=== PATIENT | male | born 1955 | race Caucasian/White ===

== ENCOUNTER 2017-07-23 10:38 | Observation (INO) ==
[2017-07-23 11:06] LABS: Basophils # 0.1 K/mm3 (0-0.2); Basophils % 0.4 % (0.1-2.0); Eosinophils # 0.1 K/mm3 (0.0-0.4); Eosinophils % 0.7 % (0.1-12.0); Hematocrit 39.3 % (42.0-52.0); Hemoglobin 12.6 g/dL (14.1-18.0); Lymphocytes # 1.3 K/mm3 (0.7-4.5); Lymphocytes % 8.8 K/mm3 (10-50); Mean Corpuscular HGB Conc 32.2 g/dL (31.8-35.4); Mean Corpuscular Hemoglobin 28.9 pg (27.0-31.2); Mean Corpuscular Volume 89.8 fl (80-94); Mean Platelet Volume 7.5 fl (7.4-10.4); Monocytes # 1.1 K/mm3 (0.1-1.0); Monocytes % 7.1 % (1.7-9.3); Neutrophils # 12.7 K/mm3 (1.8-7.8); Platelet Count 454 K/mm3 (142-424); Red Blood Count 4.37 M/mm3 (4.60-6.20); Red Cell Distribution Width 13.2 % (11.5-17.5); White Blood Count 15.3 K/mm3 (4.8-10.8)
[2017-07-23 11:13] LABS: Microscopic, Urine URINE MICROSCOPIC (MICROSCOPIC)
[2017-07-23 11:15] LABS: Appearance,Urine CLEAR (Clear); Bilirubin,Urine Negative (Negative); Blood, Urine 1+ (Negative); Color,Urine YELLOW (Yellow); Glucose,Urine (UA) 3+ (Negative); Ketones,Urine Negative (Negative); Leukocyte Esterase,Urine Negative (Negative); Protein,Urine TRACE (Negative); Specific Gravity, Urine 1.015 (1.005-1.030)
[2017-07-23 11:30] LABS: Alanine Aminotransferase 20 U/L (12-78); Albumin Level 2.3 gm/dL (3.4-5.0); Albumin/Globulin Ratio 0.4 (1.1-1.8); Alkaline Phosphatase 128 U/L (46-116); Anion Gap 11.2 mEq/L (5-15); Aspartate Amino Transferase 22 U/L (15-37); Bilirubin,Total 0.6 mg/dL (0.2-1.0); Blood Urea Nitrogen 20 mg/dL (7-18); Calcium 9.1 mg/dL (8.5-10.1); Carbon Dioxide 28 mmol/L (21.0-32.0); Chloride 100 mmol/L (98-107); Creatine Kinase 13 U/L (39-308); Globulin 6.3 gm/dl (1.3-3.2); Glucose 151 mg/dL (74-106); Potassium 4.2 mmoL/L (3.5-5.1); Sodium 135 mmol/L (136-145); Total Protein,Serum 8.6 gm/dL (6.4-8.2)
[2017-07-23 11:42] LABS: Eosinophils % 1 % (0-3); Lymphocytes % 12 % (10-50); Monocytes % 3 % (2-9); Neutrophils % 84 % (42-76); RBC Morphology Normal; Total Cells Counted 100
[2017-07-23 11:45] LABS: Amorphous Sediment,Urine 2+ /lpf; Bacteria,Urine 3+ /lpf; White Blood Cell Casts,Urine Occasional #/lpf (0)
--- NOTE | 2017-07-23 12:19 | Emergency Department Note ---
ED Disposition Clinical Impression: Pyelonephritis, Renal mass, left, Chronic a-fib Disposition: Still a Patient Condition on Discharge: Fair Instructions: DI for Urinary Tract Infection (UTI) Referrals: Izaiah Csoby [Primary Care Provider] - - Critical Care Critical Care Time: No Attestation: On 07/23/17, the high probability of a clinically significant, sudden or life threatening deterioration of the following system(s) required my full and direct attention, intervention and personal management. The time I documented below is in addition to time spent performing reported procedures but includes the following listed in this critical care notation. Medical Decision Making - Stephen Inquiry Pt receiving controlled substance: No Stephen was queried for this patient: No Vital Signs: 07/23/17 10:39 07/23/17 11:39 Temperature 98.2 F 99.2 F Temperature Source Oral Oral Pulse Rate [Right Radial] 95 H 95 H Respiratory Rate 18 18 Blood Pressure [Right Arm] 142/58 122/71 Blood Pressure Mean [Right Arm] 86 88 Blood Pressure Source [Right Arm] Automatic Cuff Blood Pressure Position [Right Arm] Supine 02 Sat by Pulse Oximetry 98 98 Oxygen Delivery Method Room Air Room Air - Lab Data Lab Results 07/23/17 10:40: WBC 15.3 H, RBC 4.37 L, Hgb 12.6 L, Hct 39.3 L, MCV 89.8, MCH 28.9, MCHC 32.2, RDW 13.2, Plt Count 454 H, MPV 7.5, Neut % (Auto) 83.0 H, Lymph % (Auto) 8.8 L, [place] % (Auto) 7.1, Eos % (Auto) 0.7, Baso % (Auto) 0.4, Neut # (Auto) 12.7 H, Lymph # (Auto) 1.3, [place] # (Auto) 1.1 H, Eos # (Auto) 0.1 , Baso # (Auto) 0.1, Total Counted 100, Neutrophils % (Manual) 84 H, Lymphocytes % (Manual) 12, Monocytes % (Manual) 3, Eosinophils % (Manual) 1, Platelet Estimate Slight increase, RBC Morphology Normal 07/23/17 10:40: Sodium 135 L, Potassium 4.2, Chloride 100, Carbon Dioxide 28, Anion Gap 11.2, BUN 20 H, Creatinine 1.20, Estimated Creat Clear 79, Estimated GFR 62, Est GFR ( Amer) 74, Glucose 151 H, Calcium 9.1, Total Bilirubin 0.6, AST 22, ALT 20, Alkaline Phosphatase 128 H, Total Creatine Kinase 13 L, CK- MB (CK-2) < 0.5, CK-MB (CK-2) Rel Index 3.8, Troponin I < 0.02, Total Protein 8.6 H, Albumin 2.3 L, Globulin 6.3 H, Albumin/Globulin Ratio 0.4 L 07/23/17 11:00: Urine Color Yellow, Urine Appearance Clear, Urine pH 5.0, Ur Specific [place] 1.015, Urine Protein Trace, Urine Glucose (UA) 3+, Urine Ketones Negative, Urine Blood 1+, Urine Nitrate Negative, Urine Bilirubin Negative, Urine Urobilinogen 1.0, Ur Leukocyte Esterase Negative, Urine WBC 10- 20, Amorphous Sediment 2+, Urine Bacteria 3+, WBC Casts Occasional 07/23/17 11:00: Lactic Acid 1.2 Result diagrams: 07/23/17 10:40 07/23/17 10:40 Orders (Tests/Meds): ED MEDICATIONS Generic Name Dose Route Start Last Admin Trade Name Freq PRN Reason Stop Dose Admin Ceftriaxone Sodium 1 gm/ 100 mls @ 200 mls/hr 07/24/17 09:00 07/23/17 11:21 Sodium Chloride IV 08/07/17 08:59 200 mls/hr DAILY JENNIFER Administration Protocol Discontinued Medications Generic Name Dose Route Start Last Admin Trade Name Freq PRN Reason Stop Dose Admin Sodium Chloride 1,000 mls @ 999 mls/hr 07/23/17 11:30 Sod Chlor 0.9% 1000ml Bag IV 07/23/17 12:30 .Q1H1M JENNIFER Sodium Chloride 1,000 mls @ 999 mls/hr 07/23/17 11:30 07/23/17 11:23 Sod Chlor 0.9% 1000ml Bag IV 07/23/17 12:30 999 mls/hr .Q1H1M JENNIFER Administration Iopamidol 75 ml 07/23/17 12:20 07/23/17 12:21 [id number]; 75ml Vial IV 07/23/17 12:21 75 ml ONCE ONE Administration Sodium Chloride 10 ml 07/23/17 12:20 07/23/17 12:21 Rad-Saline Flush 10ml Syringe IV 07/23/17 12:21 10 ml ONCE ONE Administration ORDERS Category Date Time Status Blood Culture Stat Micro 07/23/17 11:00 Received Urine Culture Stat Micro 07/23/17 11:00 Received - ECG Data Tracing #1 Atrial fibrillation's 102 rapid ventricular response incomplete right bundle prior EKG dated October. ECG initial impression date: 07/23/17 ECG initial impression time: 12:19 Medical Decision Narrative: After reviewing the patient's labs and CT scan. 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 Patient will be admitted for IV fluids IV antibiotics pain and nausea control. Consult his urologist Dr. Mejia. Male Urogenital HPI - General Chief complaint: Urogenital-Male Stated complaint: chest pain/flank pain Time Seen by Provider: 07/23/17 11:00 Mode of Arrival: EMS Limitations: No Limitations Description of Symptoms (Recalled from ER Triage Doc. by RN): Pt called ems for back/flank pain. Painful with movement. Also reports Left chest pain for "a minute" at 0900 this morning. Denies cp at this time. Reports one hundred pound weight loss in the last year. - History of Present Illness HPI Narrative: 62 years old white male history of hypertension hyperlipidemia lipidemia coronary artery disease and stenting. On February 2017 he was diagnosed with a left kidney mass and he is seeing Dr. Kuo at [facility]. Per his he did not have a biopsy of that august. He does self-catheterization. Yesterday he started developing right CVA pain low-grade temp of 99.3 that is progressively gotten worse until this morning when he arrived to the ED. he denies having nausea or vomiting dysuria or hematuria. The patient complains of constant sharp pain worse with movement, he has dry cough. The patient has not uses digoxin lately and he is on no anticoagulation with a history of chronic atrial fibrillation's. He has a watch device per his . Onset (ago): day(s) (Started yesterday.) Duration: constant Severity: moderate Quality: dull Relieving factors: none Exacerbating factors: none Reports: urinary retention - Related Data Sexually active: Yes Home Medications Medication Instructions Recorded Confirmed atorvastatin 40 mg tablet 40 mg PO .q day tab 05/17/17 07/23/17 carvedilol 12.5 mg tablet 12.5 mg PO BID 05/17/17 07/23/17 digoxin 125 mcg tablet 125 mcg PO .q day tab 05/17/17 07/23/17 empagliflozin 10 mg tablet 10 mg PO QAM 05/17/17 07/23/17 levothyroxine 50 mcg tablet 0.05 mcg PO .q day tab 05/17/17 07/23/17 metformin ER 1,000 mg 1,000 mg PO BID tab 05/17/17 07/23/17 tablet,extended release 24hr Aspirin [Aspir 81] 81 mg PO HS 07/23/17 07/23/17 Allergies Allergy/AdvReac Type Severity Reaction Status Date / Time No Known Allergies Allergy Verified 07/23/17 10:49 [facility] History I have reviewed the patient's past medical history: Yes Medical History: Reports:: Atrial Fibrillation, Coronary Artery Disease, Diabetes Mellitus Type 2, Hyperlipidemia, Hypertension, Myocardial Infarction Denies:: MRSA Other Medical History: Reports: Anemia, Arthritis, Other (heart problems, bleeding disorder) Laterality Cases: Left: Partial Knee Replacement, Bilateral: Arthroscopy Knee, Other Other Surgeries: Yes: Cardiac Catheterization, Coronary Stent, Other ( cholecystectomy ) Amputation: Yes - Social History Smoking Status: Never smoker Alcohol Intake: never Alcohol Intake Frequency:: other Household Members: spouse - Psychiatric History Expresses thoughts of harming self/others: None Suicide Plan Description: No Plan Family Hx:: Coronary Artery Disease ROS Obtained: Yes All systems reviewed & no additional complaints Physical Exam - General General appearance: alert, in no apparent distress, other (Patient provided history.) - Head Head exam: atraumatic, normocephalic, normal inspection - Eye Eye exam: Present: normal appearance, PERRL, EOMI - ENT ENT exam: Present: normal exam, normal oropharynx, mucous membranes moist, TM's normal bilaterally, normal external ear exam - Neck Neck exam: Present: normal inspection, full ROM, trachea midline. Absent: meningismus, lymphadenopathy - Chest Chest inspection: Present: normal inspection, symmetric chest wall rise. Absent : tenderness - Respiratory Respiratory exam: Present: normal lung sounds bilaterally. Absent: respiratory distress - Cardiovascular Cardiovascular exam: Present: regular rate, normal rhythm. Absent: JVD - Abdominal Exam Abdominal exam: Present: soft, normal bowel sounds. Absent: distention, tenderness, guarding, rebound, rigidity - exam: Present: normal inspection - Extremities Exam Extremities exam: Present: normal inspection, full ROM, normal capillary refill. Absent: calf tenderness - Back Exam Back exam: Present: normal inspection, tenderness, paraspinal tenderness - Neurological Exam Neurological exam: Present: alert, oriented X3, CN II-XII intact, motor sensory deficit, reflexes normal - Psychiatric Psychiatric exam: Present: normal affect, normal mood - Skin Skin exam: Present: warm, dry, intact, normal color - Lymphatic Lymphatic Findings: no adenopathy
[2017-07-24 06:50] LABS: Basophils % 0.3 % (0.1-2.0); Eosinophils # 0.1 K/mm3 (0.0-0.4); Eosinophils % 0.8 % (0.1-12.0); Hematocrit 32.2 % (42.0-52.0); Hemoglobin 10.3 g/dL (14.1-18.0); Lymphocytes # 1.3 K/mm3 (0.7-4.5); Lymphocytes % 10.2 K/mm3 (10-50); Mean Corpuscular Hemoglobin 28.7 pg (27.0-31.2); Mean Corpuscular Volume 89.5 fl (80-94); Mean Platelet Volume 7.2 fl (7.4-10.4); Monocytes % 8.2 % (1.7-9.3); Neutrophils # 9.9 K/mm3 (1.8-7.8); Neutrophils % 80.6 % (37.0-80.0); Platelet Count 319 K/mm3 (142-424); White Blood Count 12.3 K/mm3 (4.8-10.8)
[2017-07-24 07:27] LABS: Anion Gap 12.3 mEq/L (5-15); Potassium 4.3 mmoL/L (3.5-5.1)
--- NOTE | 2017-07-24 07:36 | H&P/Discharge Summary ---
General - General Admission date: 07/23/17 Discharge date: 07/24/17 *Admission Date: 07/23/17 *Chief complaint: Flank pain left greater than right *History of present illness: 62-year-old male who has previously been treated for a left renal hematoma presented to the emergency department with intermittent episodes of vomiting and flank pain. Patient did not have any pain medication at home. He has been seeing Dr. Sanchez for the renal hematoma and his last visit was in May. At that time the hematoma was stable and had actually decreased in size. Yesterday on evaluation the patient's hematoma had increased in size with change in appearance to a cystic mass. At the time of admission the concern however was for right flank pain which patient tells me this morning he did have but was not as significant as his left flank pain. Patient had not been having any hematuria and he has to self cath 3 times per day. He had not had fevers at home. On workup in the emergency department not only was the cystic lesion on the left kidney recognize but patient had a mildly abnormal urine and an elevated white blood cell count. There was no evidence of pyelonephritis on the right but that was the concern. Patient was admitted with IV fluids and IV Rocephin. [facility] History Medical History: Reports:: Atrial Fibrillation, Coronary Artery Disease, Diabetes Mellitus Type 2, Hyperlipidemia, Hypertension, Myocardial Infarction Denies:: MRSA Other Medical History: Reports: Anemia, Arthritis, Other (heart problems, bleeding disorder) Comment: Left renal hemorrhage and hematoma Laterality Cases: Left: Partial Knee Replacement, Bilateral: Arthroscopy Knee, Other Other Surgeries: Yes: Cardiac Catheterization, Coronary Stent, Other ( cholecystectomy ) Amputation: Yes - *Social History Educational Level: Attended High School Smoking Status: Never smoker Alcohol Intake: never Alcohol Intake Frequency:: other Occupational Status: disabled Household Members: spouse - Psychiatric History Expresses thoughts of harming self/others: None Suicide Plan Description: No Plan *Family Hx:: Coronary Artery Disease Review of Systems - Review of Systems Review of systems:: pertinent systems reviewed and negative unless documented below Exam Vital signs and Labs for Last 24 Hours: Temp Pulse Resp BP Pulse Ox 99.6 F 100 H 16 163/73 97 07/24/17 03:23 07/24/17 03:23 07/24/17 03:23 07/24/17 03:23 07/24/17 03:23 Laboratory Results - last 24 hr 04/14/18 21:09: POC Glucose 238 H 07/24/17 05:42: POC Glucose 123 H 07/24/17 06:15: WBC 12.3 H, RBC 3.60 L, Hgb 10.3 L D, Hct 32.2 L, MCV 89.5, MCH 28.7, MCHC 32.0, RDW 13.0, Plt Count 319 D, MPV 7.2 L, Neut % (Auto) 80.6 H, Lymph % (Auto) 10.2, [place] % (Auto) 8.2, Eos % (Auto) 0.8, Baso % (Auto) 0.3, Neut # (Auto) 9.9 H, Lymph # (Auto) 1.3, [place] # (Auto) 1.0, Eos # (Auto) 0.1, Baso # (Auto) 0.0 I & O for Last 24 hours: Intake & Output 07/21/17 07/22/17 07/23/17 07/24/17 11:59 11:59 11:59 11:59 Intake Total 3053 / 3053 Output Total 2800 / 2800 Balance 253 / 253 Weight 204 lb 8 oz Narrative: Patient is awake and alert. He moves about the bed easily and shows no signs of discomfort or pain. Oropharynx is moist. Neck is without lymphadenopathy. Lungs are clear. Heart has a regular rate and rhythm. Abdomen is thin, soft, nontender, nondistended. There is no CVA tenderness on the right nor the left. Hoffman catheter is in place. Hospital Course Hospital Course: Patient was admitted on IV fluids and antibiotics. He did not have any further vomiting. He required oral pain medication for generalized discomfort but associated flank pain. He did not have any hematuria. His urine remained clear and yellow. White blood cell count was elevated on presentation and decreased from 15,000 down to 12,000. He did not have fevers. Patient was discharged home and will follow up with Dr. Sanchez as an outpatient. He was discharged on Cipro and given Kingsley. Results Labs on day of discharge: Labs from last 24 hours 07/24/17 07/24/17 07/23/17 06:15 05:42 21:09 WBC 12.3 H RBC 3.60 L Hgb 10.3 L D Hct 32.2 L MCV 89.5 MCH 28.7 MCHC 32.0 RDW 13.0 Plt Count 319 D MPV 7.2 L Neut % (Auto) 80.6 H Lymph % (Auto) 10.2 [place] % (Auto) 8.2 Eos % (Auto) 0.8 Baso % (Auto) 0.3 Neut # (Auto) 9.9 H Lymph # (Auto) 1.3 [place] # (Auto) 1.0 Eos # (Auto) 0.1 Baso # (Auto) 0.0 POC Glucose 123 H 238 H DS: Diagnosis - Discharge Diagnosis (1) Pyelonephritis Status: Acute (2) Renal mass, left Status: Acute Discharge Medications Discharge Medications: Home Medications Medication Instructions Recorded Confirmed Type atorvastatin 40 mg tablet 40 mg PO .q day tab 05/17/17 07/23/17 History carvedilol 12.5 mg tablet 12.5 mg PO BID 05/17/17 07/23/17 History digoxin 125 mcg tablet 125 mcg PO .q day tab 05/17/17 07/23/17 History empagliflozin 10 mg tablet 10 mg PO QAM 05/17/17 07/23/17 History levothyroxine 50 mcg tablet 0.05 mcg PO .q day tab 05/17/17 07/23/17 History metformin ER 1,000 mg 1,000 mg PO BID tab 05/17/17 07/23/17 History tablet,extended release 24hr Aspirin [Aspir 81] 81 mg PO HS 07/23/17 07/23/17 History Disposition Disposition: Home, Self-Care
== END 2017-07-24 08:47 | disposition home or self-care (01) ==
LOC: ER 10:38 → 2ND 10:38
PROVIDERS: ADMIT Family Medicine; ATTEND Family Medicine

== ENCOUNTER → 2017-08-23 14:06 | Outpatient (CLI) | payer MEDICARE, SELFPAY | PROVIDERS: Visit Provider Urology | DX: N12 Tubulo-interstitial nephritis, not specified as acute or chronic (principal) | CPT/HCPCS: 87070; 87077; 87102; 87186; 87205; 87206 ==

== ENCOUNTER → 2017-09-06 11:36 | Outpatient (CLI) | payer MEDICARE, SELFPAY ==
[2017-09-06 12:04] LABS: Basophils # 0.1 K/mm3 (0-0.2); Basophils % 1.2 % (0.1-2.0); Eosinophils # 0.1 K/mm3 (0.0-0.4); Eosinophils % 2.4 % (0.1-12.0); Hematocrit 33.5 % (42.0-52.0); Hemoglobin 10.2 g/dL (14.1-18.0); Lymphocytes # 1.3 K/mm3 (0.7-4.5); Mean Corpuscular HGB Conc 30.4 g/dL (31.8-35.4); Mean Corpuscular Hemoglobin 28.1 pg (27.0-31.2); Mean Corpuscular Volume 92.4 fl (80-94); Mean Platelet Volume 6.9 fl (7.4-10.4); Monocytes # 0.4 K/mm3 (0.1-1.0); Monocytes % 7.7 % (1.7-9.3); Neutrophils # 3.6 K/mm3 (1.8-7.8); Neutrophils % 65.7 % (37.0-80.0); Platelet Count 415 K/mm3 (142-424); Red Blood Count 3.62 M/mm3 (4.60-6.20); Red Cell Distribution Width 14.8 % (11.5-17.5); White Blood Count 5.4 K/mm3 (4.8-10.8)
[2017-09-06 15:07] LABS: Alanine Aminotransferase 20 U/L (12-78); Albumin Level 2.7 gm/dL (3.4-5.0); Albumin/Globulin Ratio 0.5 (1.1-1.8); Alkaline Phosphatase 134 U/L (46-116); Anion Gap 14.3 mEq/L (5-15); Aspartate Amino Transferase 20 U/L (15-37); Bilirubin,Direct 0.2 mg/dL (0.0-0.2); Bilirubin,Indirect 0.2 mg/dL (0.0-0.9); Bilirubin,Total 0.4 mg/dL (0.2-1.0); Blood Urea Nitrogen 20 mg/dL (7-18); Calcium 9.2 mg/dL (8.5-10.1); Carbon Dioxide 27 mmol/L (21.0-32.0); Chloride 104 mmol/L (98-107); Creatinine,Serum 1.21 mg/dL (0.70-1.30); Estimated Glomerular Filt Rate 61 ml/min (>60); GFR (African American) 74 ML/MIN (>60); Glucose 149 mg/dL (74-106); Potassium 5.3 mmoL/L (3.5-5.1); Sodium 140 mmol/L (136-145); Total Protein,Serum 7.7 gm/dL (6.4-8.2)
== END ==
PROVIDERS: Family Provider Family Medicine; Visit Provider Urology
DX: R55 Syncope and collapse (principal); R53.83 Other fatigue
CPT/HCPCS: 36415; 80053; 80076; 85025

== ENCOUNTER 2017-09-20 10:24 | Outpatient (CLI) | payer MEDICARE, SELFPAY ==
[2017-09-20 10:36] VITALS: BP 130/67; PULSE 102; RESP 18; TEMP 36.8; O2SAT 97
[2017-09-20 11:06] VITALS: BP 128/69; PULSE 99; RESP 18; O2SAT 98
[2017-09-20 11:25] VITALS: BP 131/65; PULSE 98; RESP 18; O2SAT 98
== END 2017-09-20 11:25 | disposition home or self-care (01) ==
LOC: INF 10:24
PROVIDERS: Family Provider Family Medicine; Visit Provider Internal Medicine Infectious Disease
DX: K65.1 Peritoneal abscess (principal)
CPT/HCPCS: 96365; J1335

== ENCOUNTER 2017-09-21 09:27 | Outpatient (CLI) | payer MEDICARE, SELFPAY ==
[2017-09-21 09:30] VITALS: BMI 25.0
[2017-09-21 10:00] VITALS: BP 106/52; PULSE 94; RESP 18; TEMP 36.4; O2SAT 96
[2017-09-21 10:21] LABS: Basophils % 0.4 % (0.1-2.0); Eosinophils # 0.1 K/mm3 (0.0-0.4); Eosinophils % 1.4 % (0.1-12.0); Hematocrit 31.4 % (42.0-52.0); Hemoglobin 9.5 g/dL (14.1-18.0); Lymphocytes # 0.9 K/mm3 (0.7-4.5); Lymphocytes % 11.8 K/mm3 (10-50); Mean Corpuscular HGB Conc 30.2 g/dL (31.8-35.4); Mean Corpuscular Volume 92.8 fl (80-94); Mean Platelet Volume 6.9 fl (7.4-10.4); Monocytes # 0.6 K/mm3 (0.1-1.0); Monocytes % 7.3 % (1.7-9.3); Neutrophils # 6.2 K/mm3 (1.8-7.8); Platelet Count 458 K/mm3 (142-424); Red Blood Count 3.38 M/mm3 (4.60-6.20); White Blood Count 7.8 K/mm3 (4.8-10.8)
[2017-09-21 10:30] VITALS: BP 108/58; PULSE 92; RESP 18; O2SAT 97
[2017-09-21 10:34] LABS: Alanine Aminotransferase 17 U/L (12-78); Albumin/Globulin Ratio 0.4 (1.1-1.8); Alkaline Phosphatase 178 U/L (46-116); Anion Gap 13.3 mEq/L (5-15); Aspartate Amino Transferase 18 U/L (15-37); Bilirubin,Total 0.6 mg/dL (0.2-1.0); Blood Urea Nitrogen 19 mg/dL (7-18); Carbon Dioxide 27 mmol/L (21.0-32.0); Chloride 100 mmol/L (98-107); Creatinine Clearance Estimated 100 mL/min (0-300); Estimated Glomerular Filt Rate 76 ml/min (>60); GFR (African American) 92 ML/MIN (>60); Globulin 5.5 gm/dl (1.3-3.2); Glucose 206 mg/dL (74-106); Potassium 4.3 mmoL/L (3.5-5.1); Sodium 136 mmol/L (136-145); Total Protein,Serum 7.5 gm/dL (6.4-8.2)
[2017-09-21 10:36] LABS: C-Reactive Protein 15.8 mg/L (0.0-0.9)
[2017-09-21 10:45] VITALS: BP 110/59; PULSE 94; RESP 18; O2SAT 97
[2017-09-21 11:08] LABS: Erythrocyte Sedimentation Rate > 120 mm/hr (0-20)
== END 2017-09-21 10:50 | disposition home or self-care (01) ==
LOC: INF 09:27
PROVIDERS: Family Provider Family Medicine; Visit Provider Internal Medicine Infectious Disease
DX: K65.1 Peritoneal abscess (principal)
CPT/HCPCS: 80053; 85025; 85651; 86140; 96365; J1335

== ENCOUNTER 2017-09-22 09:25 | Outpatient (CLI) | payer MEDICARE, SELFPAY ==
[2017-09-22 09:40] VITALS: BP 112/62; PULSE 108; RESP 18; TEMP 36.6; O2SAT 100
[2017-09-22 10:10] VITALS: BP 115/68; PULSE 99; RESP 18; O2SAT 98
[2017-09-22 10:30] VITALS: BP 118/64; PULSE 102; RESP 18; O2SAT 99
== END 2017-09-22 10:35 | disposition home or self-care (01) ==
LOC: INF 15:10
PROVIDERS: Family Provider Family Medicine; Visit Provider Internal Medicine Infectious Disease
DX: K65.1 Peritoneal abscess (principal)
CPT/HCPCS: 96365; J1335

== ENCOUNTER 2017-09-23 09:40 | Outpatient (CLI) | payer MEDICARE, SELFPAY ==
[2017-09-23 10:10] VITALS: BP 94/45; PULSE 82; RESP 18; TEMP 36.8
[2017-09-23 10:40] VITALS: BP 93/41; PULSE 75; RESP 16
[2017-09-23 10:45] VITALS: BP 89/44; PULSE 78; RESP 16
== END 2017-09-23 11:10 | disposition home or self-care (01) ==
LOC: INF 09:45
PROVIDERS: Family Provider Family Medicine; Visit Provider Internal Medicine Infectious Disease
DX: K65.1 Peritoneal abscess (principal)
CPT/HCPCS: 96365; J1335; J1642

== ENCOUNTER → 2017-09-24 09:39 | Outpatient (CLI) | payer MEDICARE, SELFPAY ==
[2017-09-24 09:39] VITALS: BP 94/68; PULSE 68; RESP 18; TEMP 36.2; O2SAT 95
[2017-09-24 10:03] VITALS: BP 94/67; PULSE 68; RESP 18; TEMP 36.2; O2SAT 95; BMI 25.0
== END ==
PROVIDERS: Family Provider Family Medicine; Visit Provider Internal Medicine Infectious Disease
DX: K65.1 Peritoneal abscess (principal)
CPT/HCPCS: 96365; J1335

== ENCOUNTER → 2017-09-25 08:48 | Outpatient (CLI) | payer MEDICARE, SELFPAY ==
[2017-09-25 08:48] VITALS: BP 102/55; PULSE 75; RESP 18; TEMP 36.8
[2017-09-25 09:00] VITALS: BP 105/54; PULSE 76; RESP 18; TEMP 36.8; O2SAT 95; BMI 25.0
== END ==
PROVIDERS: Family Provider Family Medicine; Visit Provider Internal Medicine Infectious Disease
DX: K65.1 Peritoneal abscess (principal)
CPT/HCPCS: 96365; J1335

== ENCOUNTER 2017-09-26 10:20 | Outpatient (CLI) | payer MEDICARE, SELFPAY ==
[2017-09-26 10:45] VITALS: BP 91/53; PULSE 83; RESP 18; TEMP 36.5; O2SAT 96
[2017-09-26 11:15] VITALS: BP 95/51; PULSE 91; RESP 18
[2017-09-26 11:45] VITALS: BP 96/47; PULSE 88; RESP 18
== END 2017-09-26 11:45 | disposition home or self-care (01) ==
LOC: INF 10:32
PROVIDERS: Family Provider Family Medicine; Visit Provider Internal Medicine Infectious Disease
DX: K65.1 Peritoneal abscess (principal)
CPT/HCPCS: 96365; J1335

== ENCOUNTER 2017-09-27 10:00 | Outpatient (CLI) | payer MEDICARE, SELFPAY ==
[2017-09-27 10:27] VITALS: BP 104/59; PULSE 82; RESP 18; TEMP 36.4; O2SAT 96
[2017-09-27 10:57] VITALS: BP 108/58; PULSE 84; RESP 20; O2SAT 97
[2017-09-27 11:10] VITALS: BP 106/59; PULSE 81; RESP 20; O2SAT 97
[2017-09-27 11:33] VITALS: BMI 36.2
[2017-09-27 11:50] LABS: Basophils # 0.1 K/mm3 (0-0.2); Basophils % 0.9 % (0.1-2.0); Eosinophils # 0.2 K/mm3 (0.0-0.4); Hematocrit 31.5 % (42.0-52.0); Hemoglobin 9.7 g/dL (14.1-18.0); Lymphocytes # 1.4 K/mm3 (0.7-4.5); Lymphocytes % 17.3 K/mm3 (10-50); Mean Corpuscular HGB Conc 30.9 g/dL (31.8-35.4); Mean Corpuscular Hemoglobin 28.3 pg (27.0-31.2); Mean Corpuscular Volume 91.5 fl (80-94); Mean Platelet Volume 6.9 fl (7.4-10.4); Monocytes # 0.4 K/mm3 (0.1-1.0); Monocytes % 5.1 % (1.7-9.3); Neutrophils # 5.8 K/mm3 (1.8-7.8); Neutrophils % 74.8 % (37.0-80.0); Red Blood Count 3.45 M/mm3 (4.60-6.20); Red Cell Distribution Width 14.5 % (11.5-17.5); White Blood Count 7.8 K/mm3 (4.8-10.8)
[2017-09-27 11:57] LABS: Platelet Count 725 K/mm3 (142-424)
[2017-09-27 12:00] LABS: Alanine Aminotransferase 18 U/L (12-78); Albumin Level 2.1 gm/dL (3.4-5.0); Albumin/Globulin Ratio 0.4 (1.1-1.8); Alkaline Phosphatase 129 U/L (46-116); Aspartate Amino Transferase 18 U/L (15-37); Bilirubin,Total 0.4 mg/dL (0.2-1.0); Blood Urea Nitrogen 13 mg/dL (7-18); C-Reactive Protein 5.7 mg/L (0.0-0.9); Calcium 8.8 mg/dL (8.5-10.1); Carbon Dioxide 29 mmol/L (21.0-32.0); Chloride 103 mmol/L (98-107); Creatinine Clearance Estimated 142 mL/min (0-300); Creatinine,Serum 1.02 mg/dL (0.70-1.30); Estimated Glomerular Filt Rate 74 ml/min (>60); GFR (African American) 90 ML/MIN (>60); Globulin 5.6 gm/dl (1.3-3.2); Glucose 118 mg/dL (74-106); Sodium 140 mmol/L (136-145); Total Protein,Serum 7.7 gm/dL (6.4-8.2)
[2017-09-27 13:15] LABS: Erythrocyte Sedimentation Rate > 120 mm/hr (0-20)
== END 2017-09-27 11:15 | disposition home or self-care (01) ==
LOC: INF 10:00
PROVIDERS: Family Provider Family Medicine; Visit Provider Internal Medicine Infectious Disease
DX: K65.1 Peritoneal abscess (principal)
CPT/HCPCS: 80053; 85025; 85651; 86140; 96365; J1335

== ENCOUNTER 2017-09-28 13:50 | Outpatient (CLI) | payer MEDICARE, SELFPAY ==
[2017-09-28 14:11] VITALS: BP 92/51; PULSE 83; RESP 18; TEMP 36.7; O2SAT 99
[2017-09-28 14:41] VITALS: BP 98/54; PULSE 84; RESP 18; O2SAT 98
[2017-09-28 15:05] VITALS: BP 101/52; PULSE 81; RESP 18; O2SAT 98
== END 2017-09-28 15:10 | disposition home or self-care (01) ==
LOC: INF 14:00
PROVIDERS: Family Provider Family Medicine; Visit Provider Internal Medicine Infectious Disease
DX: K65.1 Peritoneal abscess (principal)
CPT/HCPCS: 96365; J1335

== ENCOUNTER 2017-09-29 09:50 | Outpatient (CLI) | payer MEDICARE, SELFPAY ==
[2017-09-29 10:25] VITALS: BP 93/52; PULSE 76; RESP 18; TEMP 36.6; O2SAT 97
[2017-09-29 10:55] VITALS: BP 98/54; PULSE 79; RESP 18; O2SAT 98
[2017-09-29 11:10] VITALS: BP 94/59; PULSE 80; RESP 18; O2SAT 98
== END 2017-09-29 11:15 | disposition home or self-care (01) ==
LOC: INF 10:09
PROVIDERS: Family Provider Family Medicine; Visit Provider Internal Medicine Infectious Disease
DX: K65.1 Peritoneal abscess (principal)
CPT/HCPCS: 96365; J1335

== ENCOUNTER 2017-09-30 09:30 | Outpatient (CLI) | payer MEDICARE, SELFPAY ==
[2017-09-30 09:55] VITALS: BP 99/47; PULSE 92; RESP 18; TEMP 36.1; O2SAT 97
[2017-09-30 10:25] VITALS: BP 98/53; PULSE 87; RESP 18
[2017-09-30 10:55] VITALS: BP 93/50; PULSE 63; RESP 18
[2017-09-30 11:10] VITALS: BP 102/54; PULSE 74; RESP 18
== END 2017-09-30 11:10 | disposition home or self-care (01) ==
LOC: INF 09:40
PROVIDERS: Family Provider Family Medicine; Visit Provider Internal Medicine Infectious Disease
DX: K65.1 Peritoneal abscess (principal)
CPT/HCPCS: 96365; J1335

== ENCOUNTER 2017-10-01 09:06 | Outpatient (CLI) | payer MEDICARE, SELFPAY ==
[2017-10-01 09:48] VITALS: BP 108/52; PULSE 69; RESP 22; TEMP 36.7; O2SAT 99
--- NOTE | 2017-10-01 09:48 | PC.NURSE ---
PATIENT GIVEN CUP OF COFFEE. STATED DOESN'T WANT ANY BREAKFAST. FAMILY WITH PATIENT.
[2017-10-01 09:57] VITALS: BP 110/55; PULSE 72; RESP 20; TEMP 36.7; O2SAT 99
== END 2017-10-01 09:57 | disposition home or self-care (01) ==
LOC: INF 09:06
PROVIDERS: Family Provider Family Medicine; Visit Provider Internal Medicine Infectious Disease
DX: K65.1 Peritoneal abscess (principal)
CPT/HCPCS: 96365; J1335

== ENCOUNTER 2017-10-02 08:26 | Outpatient (CLI) | payer MEDICARE, SELFPAY ==
[2017-10-02 08:53] VITALS: BP 92/45; PULSE 76; RESP 18; TEMP 36.5; O2SAT 95
[2017-10-02 09:28] VITALS: BP 91/46; PULSE 71; RESP 18; TEMP 36.2; O2SAT 96
== END 2017-10-02 09:28 | disposition home or self-care (01) ==
LOC: INF 08:26
PROVIDERS: Family Provider Family Medicine; Visit Provider Internal Medicine Infectious Disease
DX: K65.1 Peritoneal abscess (principal)
CPT/HCPCS: 96365; J1335

== ENCOUNTER 2017-10-03 09:40 | Outpatient (CLI) | payer MEDICARE, SELFPAY ==
[2017-10-03 09:55] VITALS: BP 90/42; PULSE 68; RESP 20; TEMP 36.7; O2SAT 96
[2017-10-03 10:25] VITALS: BP 93/40; PULSE 70; RESP 20; TEMP 36.9; O2SAT 96
== END 2017-10-03 10:30 | disposition home or self-care (01) ==
LOC: INF 09:55
PROVIDERS: Family Provider Family Medicine; Visit Provider Internal Medicine Infectious Disease
DX: K65.1 Peritoneal abscess (principal)
CPT/HCPCS: 96365; J1335

== ENCOUNTER 2017-10-04 09:00 | Outpatient (CLI) | payer MEDICARE, SELFPAY ==
[2017-10-04 09:15] VITALS: BP 94/55; PULSE 79; RESP 18; TEMP 36.3; O2SAT 98; BMI 24.8
[2017-10-04 09:37] LABS: Basophils # 0.1 K/mm3 (0-0.2); Basophils % 1.3 % (0.1-2.0); Eosinophils # 0.1 K/mm3 (0.0-0.4); Eosinophils % 1.4 % (0.1-12.0); Hematocrit 32.8 % (42.0-52.0); Hemoglobin 10.1 g/dL (14.1-18.0); Lymphocytes # 1.3 K/mm3 (0.7-4.5); Lymphocytes % 19.6 K/mm3 (10-50); Mean Corpuscular HGB Conc 30.8 g/dL (31.8-35.4); Mean Corpuscular Hemoglobin 28.2 pg (27.0-31.2); Mean Corpuscular Volume 91.7 fl (80-94); Mean Platelet Volume 6.7 fl (7.4-10.4); Monocytes # 0.5 K/mm3 (0.1-1.0); Monocytes % 6.9 % (1.7-9.3); Neutrophils # 4.8 K/mm3 (1.8-7.8); Neutrophils % 70.8 % (37.0-80.0); Platelet Count 494 K/mm3 (142-424); Red Blood Count 3.58 M/mm3 (4.60-6.20); Red Cell Distribution Width 14.8 % (11.5-17.5); White Blood Count 6.8 K/mm3 (4.8-10.8)
[2017-10-04 09:45] VITALS: BP 97/56; PULSE 74; RESP 18; O2SAT 97
[2017-10-04 09:52] LABS: Alanine Aminotransferase 13 U/L (12-78); Albumin Level 2.4 gm/dL (3.4-5.0); Albumin/Globulin Ratio 0.4 (1.1-1.8); Alkaline Phosphatase 110 U/L (46-116); Anion Gap 10.9 mEq/L (5-15); Aspartate Amino Transferase 15 U/L (15-37); Bilirubin,Total 0.4 mg/dL (0.2-1.0); Blood Urea Nitrogen 18 mg/dL (7-18); C-Reactive Protein 2.3 mg/L (0.0-0.9); Calcium 8.3 mg/dL (8.5-10.1); Carbon Dioxide 28 mmol/L (21.0-32.0); Chloride 105 mmol/L (98-107); Creatinine Clearance Estimated 96 mL/min (0-300); Creatinine,Serum 1.03 mg/dL (0.70-1.30); Estimated Glomerular Filt Rate 73 ml/min (>60); GFR (African American) 89 ML/MIN (>60); Globulin 5.4 gm/dl (1.3-3.2); Glucose 100 mg/dL (74-106); Potassium 3.9 mmoL/L (3.5-5.1); Sodium 140 mmol/L (136-145); Total Protein,Serum 7.8 gm/dL (6.4-8.2)
[2017-10-04 10:01] VITALS: BP 102/55; PULSE 77; RESP 18; O2SAT 98
[2017-10-04 10:17] LABS: Erythrocyte Sedimentation Rate > 120 mm/hr (0-20)
== END 2017-10-04 10:15 | disposition home or self-care (01) ==
LOC: INF 09:07
PROVIDERS: Family Provider Family Medicine; PCP Family Medicine; Visit Provider Internal Medicine Infectious Disease
DX: K65.1 Peritoneal abscess (principal)
CPT/HCPCS: 80053; 85025; 85651; 86140; 96365; J1335

== ENCOUNTER 2017-10-05 09:25 | Outpatient (CLI) | payer MEDICARE, SELFPAY ==
[2017-10-05 09:40] VITALS: BP 105/53; PULSE 73; RESP 18
[2017-10-05 10:15] VITALS: BP 88/46; PULSE 69; RESP 18
== END 2017-10-05 10:35 | disposition home or self-care (01) ==
LOC: INF 09:30
PROVIDERS: Family Provider Family Medicine; PCP Family Medicine; Visit Provider Internal Medicine Infectious Disease
DX: K65.1 Peritoneal abscess (principal)
CPT/HCPCS: 96365; J1335

== ENCOUNTER 2017-10-06 09:42 | Outpatient (CLI) | payer MEDICARE, SELFPAY ==
--- NOTE | 2017-10-06 09:43 | CA_ITS ---
PROCEDURE: 2-D M-mode and color Doppler study INDICATIONS FOR THE TEST: Chest painx COPD Heart Murmur Tobacco Smoking Palpitations Fatigue Syncope Edema HypertensionxDiabetes Mellitusx Rheumatic Fever SOBxDOE Obesity Hyperlipidemia Family History HD Additional History AFib, RBBB PATIENT INFORMATION HEIGHT: 6'3'' WEIGHT: 199 GENDER: Male B/P: 113/45 2-D/M-MODE INTERPRETATION: 2-D MEASUREMENTS OBSERVED VALUES IN CMS Right Ventricular Dimension (RVDd) 2.7 Interventricular Septum (Thickness)(IVsd) 1.1 Left Ventricular Internal Dimensions(LVIDd) 4.9 Left Ventricular Posterior Wall (Thickness)(LVPWd) 1.3 Aortic Root 3.0 Aortic Cusp Separation 2.3 Left Atrial Dimensions (LAD) 3.9 2D 1. Left atrium is mildly enlarged, left ventricle is normal size, mild concentric left ventricular hypertrophy, visually estimated ejection fraction of 55% with no obvious regional wall motion abnormality. 2. The right atrium is normal size, right ventricle is mildly enlarged with normal contractility. 3. The aortic valve is minimally thickened and fibrosed. 4. The mitral and tricuspid valve leaflets are minimally thickened 5. The pulmonic valve is poorly visualized. 6. No significant pericardial effusion noted. DOPPLER INTERROGATION: Doppler interrogation of the aortic, mitral and tricuspid valvular presence of mild mitral and tricuspid regurgitation, tricuspid and jet velocity insufficient for calculation of the right ventricular systolic pressure, diastolic parameters are inconclusive. CONCLUSION: 1. Mildly enlarged left atrium, normal left ventricular size, mild concentric left ventricular hypertrophy, visually estimated ejection fraction 55% with no obvious regional wall motion abnormality, diastolic parameters are inconclusive. 2. Mildly enlarged right ventricle with normal contractility. 3. Mild mitral and tricuspid regurgitation 4. No significant pericardial effusion noted.
[2017-10-06 10:40] VITALS: BP 106/63; PULSE 69; RESP 18; TEMP 36.7; O2SAT 97
[2017-10-06 11:10] VITALS: BP 110/64; PULSE 70; RESP 18; O2SAT 98
[2017-10-06 11:30] VITALS: BP 108/69; PULSE 67; RESP 18; O2SAT 98
== END 2017-10-06 11:30 | disposition home or self-care (01) ==
LOC: INF 09:43
PROVIDERS: Family Provider Family Medicine; PCP Family Medicine; Visit Provider Internal Medicine
DX: I48.2 Chronic atrial fibrillation (principal); R07.89 Other chest pain; R06.09 Other forms of dyspnea; R94.31 Abnormal electrocardiogram [ECG] [EKG]; R42 Dizziness and giddiness; E11.8 Type 2 diabetes mellitus with unspecified complications; E78.4 Other hyperlipidemia; I11.9 Hypertensive heart disease without heart failure; K68.19 Other retroperitoneal abscess; Z16.12 Extended spectrum beta lactamase (ESBL) resistance; B96.1 Klebsiella pneumoniae [K. pneumoniae] as the cause of diseases classified elsewhere; Z90.5 Acquired absence of kidney
CPT/HCPCS: 93306; 96365; J1335

== ENCOUNTER 2017-10-07 10:15 | Outpatient (CLI) | payer MEDICARE, SELFPAY ==
[2017-10-07 10:20] VITALS: BP 120/46; PULSE 68; RESP 20; TEMP 36.9; O2SAT 96
[2017-10-07 11:30] VITALS: BP 126/70; PULSE 68; RESP 20; TEMP 37.1; O2SAT 96
== END 2017-10-07 11:30 | disposition home or self-care (01) ==
LOC: INF 16:22
PROVIDERS: Family Provider Family Medicine; PCP Family Medicine; Visit Provider Internal Medicine Infectious Disease
DX: K68.19 Other retroperitoneal abscess (principal); B96.1 Klebsiella pneumoniae [K. pneumoniae] as the cause of diseases classified elsewhere; Z90.5 Acquired absence of kidney
CPT/HCPCS: 96365; J1335

== ENCOUNTER 2017-10-08 10:29 | Outpatient (CLI) | payer MEDICARE, SELFPAY ==
[2017-10-08 11:00] VITALS: BP 107/41; PULSE 62; RESP 18; TEMP 36.7; O2SAT 99; BMI 24.8
[2017-10-08 11:30] VITALS: BP 108/42; PULSE 62; RESP 18; TEMP 36.7; O2SAT 99
== END 2017-10-08 11:30 | disposition home or self-care (01) ==
LOC: INF 10:30
PROVIDERS: Family Provider Family Medicine; PCP Family Medicine; Visit Provider Internal Medicine Infectious Disease
DX: K68.19 Other retroperitoneal abscess (principal); B96.1 Klebsiella pneumoniae [K. pneumoniae] as the cause of diseases classified elsewhere; Z90.5 Acquired absence of kidney
CPT/HCPCS: 96365; J1335

== ENCOUNTER 2017-10-09 10:26 | Outpatient (CLI) | payer MEDICARE, SELFPAY ==
[2017-10-09 10:36] VITALS: BP 111/44; PULSE 58; RESP 18; TEMP 36.5; BMI 24.8
== END 2017-10-09 11:37 | disposition home or self-care (01) ==
LOC: INF 10:26
PROVIDERS: Family Provider Family Medicine; PCP Family Medicine; Visit Provider Internal Medicine Infectious Disease
DX: K68.19 Other retroperitoneal abscess (principal); B96.1 Klebsiella pneumoniae [K. pneumoniae] as the cause of diseases classified elsewhere; Z90.5 Acquired absence of kidney
CPT/HCPCS: 96365; J1335

== ENCOUNTER 2017-10-10 09:57 | Outpatient (CLI) | payer MEDICARE, SELFPAY ==
[2017-10-10 10:04] VITALS: BP 101/44; PULSE 47; RESP 18; TEMP 36.7; O2SAT 98
[2017-10-10 10:34] VITALS: BP 104/50; PULSE 49; RESP 18; O2SAT 97
[2017-10-10 10:50] VITALS: BP 101/52; PULSE 48; RESP 18; O2SAT 98
== END 2017-10-10 10:55 | disposition home or self-care (01) ==
LOC: INF 09:57
PROVIDERS: Family Provider Family Medicine; PCP Family Medicine; Visit Provider Internal Medicine Infectious Disease
DX: K68.19 Other retroperitoneal abscess (principal); B96.1 Klebsiella pneumoniae [K. pneumoniae] as the cause of diseases classified elsewhere; Z90.5 Acquired absence of kidney
CPT/HCPCS: 96365; J1335

== ENCOUNTER 2017-10-11 10:10 | Outpatient (CLI) | payer MEDICARE, SELFPAY ==
--- NOTE | 2017-10-11 18:18 | PC.NURSE ---
1045 WHILE ACCESSING THE PATIENT TO GET STARTED THIS AM IT WAS NOTICED THAT THE PATIENT HAD A BUG CRAWLING ON HIM; WAS THEN NOTICED THAT THERE WAS NUMEROUS BUGS ON THE PATIENT; APPROACHED THE PATIENT AND HIS ABOUT TAKING HIM TO THE SHOWER AND BATHING HIM SINCE THAT IS OUR POLICY WHEN BED BUG HAS BEEN CONFIRMED; THE IMMEDIATELY STATED THAT WOULD NOT AND THEY WOULD NOT BE BACK FOR ANY TREATMENT; THE PATIENTS THEN CALLED BACK TO SAY THAT SHE WAS SORRY AND THAT SHE WAS GETTING THE PROBLEM TAKEN CARE OF AND THAT THE PATIENT WILL RETURN TOMORROW FOR THEREAPY
== END 2017-10-11 10:45 | disposition home or self-care (01) ==
LOC: INF 10:20
PROVIDERS: Family Provider Family Medicine; PCP Family Medicine; Visit Provider Internal Medicine Infectious Disease
DX: K68.19 Other retroperitoneal abscess (principal); B96.1 Klebsiella pneumoniae [K. pneumoniae] as the cause of diseases classified elsewhere; Z90.5 Acquired absence of kidney

== ENCOUNTER → 2017-10-12 08:35 | Outpatient (CLI) | payer MEDICARE, SELFPAY ==
[2017-10-12 08:35] VITALS: BP 100/47; PULSE 61; RESP 18; TEMP 36.2; O2SAT 98
[2017-10-12 09:17] VITALS: BP 100/47; BP 113/46; PULSE 57; PULSE 61; RESP 18; TEMP 36.2; O2SAT 98; BMI 25.4
== END ==
PROVIDERS: Family Provider Family Medicine; PCP Family Medicine; Visit Provider Internal Medicine Infectious Disease
DX: K68.19 Other retroperitoneal abscess (principal); B96.1 Klebsiella pneumoniae [K. pneumoniae] as the cause of diseases classified elsewhere; Z90.5 Acquired absence of kidney
CPT/HCPCS: 96365; J1335

== ENCOUNTER 2017-10-13 10:20 | Outpatient (CLI) | payer MEDICARE, SELFPAY ==
[2017-10-13 10:30] VITALS: BP 97/47; PULSE 59; RESP 18; TEMP 36.3; O2SAT 98
[2017-10-13 11:00] VITALS: BP 101/52; PULSE 60; RESP 18; O2SAT 97
[2017-10-13 11:10] VITALS: BP 99/49; PULSE 61; RESP 18; O2SAT 98
[2017-10-13 11:31] VITALS: BMI 24.8
[2017-10-13 11:48] LABS: Basophils # 0.1 K/mm3 (0-0.2); Basophils % 1.2 % (0.1-2.0); Eosinophils # 0.1 K/mm3 (0.0-0.4); Eosinophils % 2.5 % (0.1-12.0); Hemoglobin 9.4 g/dL (14.1-18.0); Lymphocytes # 1.3 K/mm3 (0.7-4.5); Lymphocytes % 25.2 K/mm3 (10-50); Mean Corpuscular HGB Conc 30.5 g/dL (31.8-35.4); Mean Corpuscular Hemoglobin 28.4 pg (27.0-31.2); Mean Corpuscular Volume 93.3 fl (80-94); Mean Platelet Volume 7.3 fl (7.4-10.4); Monocytes # 0.4 K/mm3 (0.1-1.0); Monocytes % 7.9 % (1.7-9.3); Neutrophils # 3.3 K/mm3 (1.8-7.8); Neutrophils % 63.2 % (37.0-80.0); Platelet Count 302 K/mm3 (142-424); Red Blood Count 3.32 M/mm3 (4.60-6.20); Red Cell Distribution Width 15.7 % (11.5-17.5); White Blood Count 5.3 K/mm3 (4.8-10.8)
[2017-10-13 12:46] LABS: Alanine Aminotransferase 11 U/L (12-78); Albumin Level 2.4 gm/dL (3.4-5.0); Albumin/Globulin Ratio 0.5 (1.1-1.8); Alkaline Phosphatase 91 U/L (46-116); Anion Gap 11.2 mEq/L (5-15); Aspartate Amino Transferase 14 U/L (15-37); Bilirubin,Total 0.3 mg/dL (0.2-1.0); Blood Urea Nitrogen 19 mg/dL (7-18); C-Reactive Protein 1.1 mg/L (0.0-0.9); Carbon Dioxide 26 mmol/L (21.0-32.0); Chloride 109 mmol/L (98-107); Creatinine Clearance Estimated 84 mL/min (0-300); Creatinine,Serum 1.18 mg/dL (0.70-1.30); Estimated Glomerular Filt Rate 63 ml/min (>60); GFR (African American) 76 ML/MIN (>60); Globulin 4.8 gm/dl (1.3-3.2); Glucose 134 mg/dL (74-106); Potassium 4.2 mmoL/L (3.5-5.1); Sodium 142 mmol/L (136-145); Total Protein,Serum 7.2 gm/dL (6.4-8.2)
[2017-10-13 13:21] LABS: Erythrocyte Sedimentation Rate 82 mm/hr (0-20)
== END 2017-10-13 11:15 | disposition home or self-care (01) ==
LOC: INF 10:20
PROVIDERS: Family Provider Family Medicine; PCP Family Medicine; Visit Provider Internal Medicine Infectious Disease
DX: K68.19 Other retroperitoneal abscess (principal); B96.1 Klebsiella pneumoniae [K. pneumoniae] as the cause of diseases classified elsewhere; Z90.5 Acquired absence of kidney
CPT/HCPCS: 80053; 85025; 85651; 86140; 96365; J1335

== ENCOUNTER → 2017-12-13 14:36 | Outpatient (CLI) | payer MEDICARE, SELFPAY ==
[2017-12-13 15:06] LABS: Basophils # 0.1 K/mm3 (0-0.2); Basophils % 1.2 % (0.1-2.0); Eosinophils # 0.1 K/mm3 (0.0-0.4); Eosinophils % 2.2 % (0.1-12.0); Hematocrit 42.5 % (42.0-52.0); Hemoglobin 13.3 g/dL (14.1-18.0); Lymphocytes # 1.5 K/mm3 (0.7-4.5); Lymphocytes % 27.5 K/mm3 (10-50); Mean Corpuscular HGB Conc 31.4 g/dL (31.8-35.4); Mean Corpuscular Hemoglobin 30.4 pg (27.0-31.2); Mean Corpuscular Volume 96.9 fl (80-94); Mean Platelet Volume 7.5 fl (7.4-10.4); Monocytes # 0.4 K/mm3 (0.1-1.0); Monocytes % 7.9 % (1.7-9.3); Neutrophils # 3.4 K/mm3 (1.8-7.8); Neutrophils % 61.1 % (37.0-80.0); Platelet Count 176 K/mm3 (142-424); Red Blood Count 4.39 M/mm3 (4.60-6.20); Red Cell Distribution Width 14.2 % (11.5-17.5); White Blood Count 5.5 K/mm3 (4.8-10.8)
[2017-12-13 15:47] LABS: Anion Gap 11.2 mEq/L (5-15); Blood Urea Nitrogen 20 mg/dL (7-18); Carbon Dioxide 30 mmol/L (21.0-32.0); Chloride 106 mmol/L (98-107); Creatinine,Serum 1.62 mg/dL (0.70-1.30); Estimated Glomerular Filt Rate 44 ml/min (>60); GFR (African American) 53 ML/MIN (>60); Glucose 117 mg/dL (74-106); Potassium 4.2 mmoL/L (3.5-5.1); Sodium 143 mmol/L (136-145)
== END ==
PROVIDERS: PCP Family Medicine; Visit Provider Urology
DX: R33.9 Retention of urine, unspecified (principal)
CPT/HCPCS: 36415; 80048; 85025